=== PATIENT | female | born 1995 | race Caucasian/White ===

== ENCOUNTER 2022-12-14 23:22 | Day surgery (SDC) | payer OTHER ==
[2022-12-14 23:44] VITALS: BMI 34.4
== END 2022-12-15 02:30 | disposition home or self-care (01) ==
LOC: CSHLD/OP 23:22
PROVIDERS: ATTEND Advanced Practice Midwife
DX: O47.1 False labor at or after 37 completed weeks of gestation (principal); O24.410 Gestational diabetes mellitus in pregnancy, diet controlled; O98.813 Other maternal infectious and parasitic diseases complicating pregnancy, third trimester; B95.1 Streptococcus, group B, as the cause of diseases classified elsewhere; Z79.899 Other long term (current) drug therapy; Z3A.37 37 weeks gestation of pregnancy
CPT/HCPCS: 99283

== ENCOUNTER 2023-07-27 13:28 | Emergency (ER) | payer OTHER ==
[2023-07-27] MEDS ORDERED: Ketorolac Tromethamine 30 MG/ML VIAL ONE (16:29)
== END 2023-07-27 17:59 | disposition home or self-care (01) ==
LOC: CSHERS 13:28
DX: S62.307A Unspecified fracture of fifth metacarpal bone, left hand, initial encounter for closed fracture (principal); V29.498A Other motorcycle driver injured in collision with other motor vehicles in traffic accident, initial encounter; Z87.891 Personal history of nicotine dependence
CPT/HCPCS: 29125; 70450; 71045; 72125; 72131; 96372; J1885